=== PATIENT | female | born 1945 | race Caucasian/White ===

== ENCOUNTER 2023-01-07 14:37 | Emergency (ER) | payer MEDICARE, SELFPAY ==
[2023-01-07 14:39] VITALS: BP 160/108; PULSE 62; RESP 18; TEMP 36.2; O2SAT 100; BMI 19.4
--- NOTE | 2023-01-07 15:12 | EX.ED.DYSGE1 ---
HPI History of Present Illness Chief Complaint: Hypertension Informant: patient and spouse/S.O. Onset/Context/Timing Onset: Today Current Severity: Mild Maximum Severity: Mild Narrative Narrative: 77-year-old old female history of hypertension for which she is treated with metoprolol and verapamil each once daily. Today had trouble with her vision. Was seen by her machine operator cane cutter Dr. Perez. Sent her in due to her elevated blood pressure. She denies any headache. She denies any chest pain. States she has white coat syndrome whenever her blood pressures taken in the physician's office. Prior similar symptoms: Yes Recent Illness/Hospitalization: No PFSH PFSH Allergy/AdvReac Type Severity Reaction Status Date / Time codeine Allergy Other Verified 01/07/23 14:39 Social History Smoking Status: Never smoker ROS ROS ED ROS Narrative Denies recent illness. Review of Systems ROS Unobtainable: Denies due to encephalopathy Constitutional Constitutional ED: Denies chills or fever(s) Eyes Eyes: Reports blurry vision ENT ENT ED: Denies ear pain Cardiovascular Cardiovascular: Denies chest pain Respiratory/Chest Respiratory/Chest: Denies cough Gastrointestinal Gastrointestinal: Denies abdominal pain Genitourinary Genitourinary ED: Denies dysuria Musculoskeletal Musculoskeletal: Denies arthralgias Integumentary Denies abscess Neurologic Neurologic: Denies headache(s) Psychiatric Psychiatric: Denies anxiety Endocrine Endocrinology: Denies cold intolerance Hematologic/Lymphatic Hematologic/Lymphatic: Reports none Allergic/Immunologic Allergic/Immunologic ED: Denies mouth swelling, tongue swelling or urticaria EXAM Physical Exam Narrative Exam Narrative: Well-appearing 77-year-old female. Vital signs are stable and afebrile. Initial blood pressure is 160/108. She is in no distress. H EENT exam unremarkable. Pupils round react light extra motions are intact. No facial droop. Normal speech. Neck nontender no lymphadenopathy. Lungs clear. Heart regular rhythm rate about 60 no murmur. Abdomen soft nontender. Moving all 4 extremities. Normal circulation analyst strength. Normal dorsi plantarflexion. No edema. Neurologically she is awake and alert with no focal motor deficits. NIH is 0. Const Vital Signs: 01/07/23 14:39 01/07/23 14:46 01/07/23 15:13 Temperature 97.1 F L Temperature Source Temporal Pulse Rate 62 Respiratory Rate 18 Respiratory Pattern Normal Blood Pressure 160/108 H 186/88 H Blood Pressure Mean 125 120 Pulse Ox 100 Oxygen Delivery Method Room Air 01/07/23 16:15 Temperature Temperature Source Pulse Rate Respiratory Rate Respiratory Pattern Blood Pressure 173/85 H Blood Pressure Mean 114 Pulse Ox Oxygen Delivery Method Positive well nourished and well developed; Negative for obese, cachectic, contractures or unkempt General Appearance ED: well developed and NAD; Negative for unkempt, cachectic, contractures, cyanotic, diaphoretic or pallor Nutritional Appearance: Negative for cachectic or obese HEENT Reports moist mucous membranes Negative for trauma or tenderness Eyes PERRL and EOMs intact bilaterally General Eye ED: Negative for pale conjunctiva or scleral icterus Neck no lymphadenopathy, supple and no JVD General: Negative for tenderness Lymph Lymphatic: Negative for other Chest Wall inspection of chest normal and palpation of chest normal Chest: Negative for other Resp normal respiratory effort and clear to auscultation bilaterally Effort and Inspection: Negative for retractions Auscultation: Negative for rales, rhonchi or wheezes Cardio regular rate, regular rhythm, S1 normal heart sound, S2 normal heart sound and no murmurs Rate: Negative for bradycardia or tachycardic GI normal to inspection, nondistended, normoactive bowel sounds, non-tender, non-distended and no masses Inspection: Negative for abdominal distention Auscultation: normoactive bowel sounds Palpation: soft; Negative for tender or guarding Bladder / Kidney Exam: No other Back/Spine no CVA tenderness General Back: Negative for CVA tenderness Cervical Spine: Negative for cervical spine tenderness Thoracic Spine / Upper Back: Negative for thoracic spinal tenderness Lumbar Spine / Lower Back: Negative for lumbar spinal tenderness Extremity normal to inspection General Extremety ED: Negative for edema or tenderness General Extremity: Negative for edema Neuro oriented x3 and CN's II-XII intact bilaterally Sensorium / Orientation: alert; Negative for orientation impaired, lethargic or stuporous Motor Exam: strength 5/5 throughout Psych mental status grossly normal Appearance: Negative for unkempt Attitude: No agitated Mood & Affect: Negative for depressed, anxious or tearful Skin no rashes or lesions noted, no wounds and skin turgor normal General Skin Exam: elasticity normal; Negative for jaundice or pallor Lesions: No lesion noted Rashes: No rashes noted Trauma: Negative for abrasion Wounds: Negative for wounds noted MDM MDM MDM Narrative Medical decision making narrative: 77-year-old female acute on chronic hypertension already on metoprolol and verapamil. Otherwise normal exam. Repeat blood pressure is 186/88. She will be treated with a single dose of metoprolol. Reassess. Repeat exam patient is doing well at 4:35 PM. She was treated with a metoprolol 12.5 mg. Her blood pressure stable. She will be discharged home. Instructed to log her blood pressures twice daily. Follow-up with primary care physician to decide if they need to adjust or change any of her blood pressure medications. Discharge Plan Triage Chief Complaint: Hypertension Other Complaint: Eye Problem ED Provider: Saran Carter Dx/Rx/DC Orders Clinical Impression: Hypertension Instructions: ED High Blood Pressure Hypertension Primary Care Provider: Lavon Torre Referrals: Margaret Cristobal MD [Med Staff - Alteration Workroom Supervisor] - Lavon Torre MD [Primary Care Provider] - 5-7 Days Activity Restrictions/Additional Instructions: Continue to take your blood pressure medications as prescribed. Log your blood pressures twice daily in the morning after breakfast and in the evening after dinner when you are relaxed and calm. Follow-up with your doctor showing the readings and they can decide whether they need to alter your blood pressure medication dosages or the meds themselves. You should be able to have your blood pressure controlled with 1 or 2 medications. They may need to just change the dosages. If need be you can take an extra metoprolol at home if your blood pressures consistently running higher than 180/100. Disposition Disposition: Home, Self Care
[2023-01-07 15:13] VITALS: BP 186/88
[2023-01-07] MEDS: Metoprolol(XL)Succ 25 MG Tablet 12.5 MG PO (15:27)
[2023-01-07 16:15] VITALS: BP 173/85
== END 2023-01-07 17:06 | disposition home or self-care (01) ==
PROVIDERS: Emergency Provider Emergency Medicine; PCP Family Medicine; Visit Provider Emergency Medicine
DX: I10 Essential (primary) hypertension (principal); Z79.899 Other long term (current) drug therapy
CPT/HCPCS: 99283

== ENCOUNTER 2024-11-22 18:54 | Observation (INO) | payer MEDICARE, SELFPAY ==
[2024-11-22] VITALS (7 sets, daily range): BP systolic 185–214; BP diastolic 89–133; PULSE 76–99; RESP 16–24; TEMP 36.6–36.8; O2SAT 97–100; BMI 19.1
--- NOTE | 2024-11-22 19:03 | CT_ITS ---
PROCEDURE: STROKE CTA HEAD AND NECK W/CON 11/22/2024 REASON FOR EXAM: NEURO DEFICIT, ACUTE, STROKE SUSPECTED TECHNIQUE: Procedure Code: CTCTA.ST.HN Modality: CT Procedure: STROKE CTA HEAD AND NECK W/CON Multiplanar Sagittal and Coronal images were obtained. CONTRAST: 100 cc of Isovue 370 intravenous contrast. One or more dose reduction techniques were used (e.g., Automated exposure control, adjustment of the mA and/or kV according to patient size, use of iterative reconstruction technique). COMPARISON: CT head 11/22/2024 FINDINGS: Aortic Arch: Normal size and branching pattern. No significant atherosclerotic plaque. Brachiocephalic and Subclavians: Unremarkable RIGHT Carotid: Right CCA: Unremarkable. Right ICA: Unremarkable. Maximum stenosis (NASCET): n/a Right ECA: Unremarkable. LEFT Carotid: Left CCA: Unremarkable. Left ICA: Unremarkable. Maximum stenosis (NASCET): n/a Left ECA: Unremarkable. Vertebrals: Codominant. Arise from the subclavians. Both vertebrals form the basilar. RIGHT Vertebral: Unremarkable. LEFT Vertebral: Unremarkable. Anatomy: [place] anatomy is normal. Aneurysm or avm: No intracranial aneurysms or large vascular malformations are identified. Anterior cerebral arteries: Unremarkable: Middle cerebral arteries: Unremarkable. Basilar artery: Unremarkable. Posterior cerebral arteries: Unremarkable. Other major branches of the posterior circulation: Unremarkable. Major venous structures: Unremarkable. Other findings: Neck: No lymphadenopathy. Lungs: Lung apices are clear. Bones: Bones are unremarkable. CT/STROKE CTA Head AND Neck W/Con IMPRESSION: Unremarkable CT angiogram of the head and neck with no evidence of occlusion or hemodynamically significant stenosis. Reading Location[facility]
--- NOTE | 2024-11-22 19:03 | CT_ITS ---
PROCEDURE: STROKE BRAIN/HEAD WITHOUT CONT 11/22/2024 REASON FOR EXAM: NEURO DEFICIT, ACUTE, STROKE SUSPECTED TECHNIQUE: Procedure Code: CTBR.ST Modality: CT Procedure: STROKE BRAIN/HEAD WITHOUT CONT Coronal and Sagittal reconstruction series were provided. One or more dose reduction techniques were used (e.g., Automated exposure control, adjustment of the mA and/or kV according to patient size, use of iterative reconstruction technique. COMPARISON: None available. FINDINGS: There is no extra-axial or intra-axial intracranial hemorrhage. No mass effect or midline shift is seen. Generalized intracranial volume loss and findings compatible with chronic microvascular white matter ischemia. There is normal traore-white matter differentiation. The posterior fossa is grossly unremarkable. The skull is unremarkable. Visualized paranasal sinuses are clear. The mastoid air cells show normal translucency. CT/STROKE Brain/Head without Cont IMPRESSION: 1. No intracranial hemorrhage. No mass effect or midline shift. 2. Chronic involutional and ischemic gliotic white matter changes. CT is insensitive for early evaluation of acute stroke. If there is clinical co ncern for acute ischemia, an MRI may be considered. Findings were verbally communicated with Dr. Sameer Vegas on 11/23/2019 at 4:30 p.m. EST. Reading [facility]
--- NOTE | 2024-11-22 19:03 | EKG12_ITS ---
Test Reason : STROKE ALERT Blood Pressure : */* mmHG Vent. Rate : 93 BPM Atrial Rate : 93 BPM P-R Int : 172 ms QRS Dur : 88 ms QT Int : 366 ms P-R-T Axes : 55 52 51 degrees QTcB Int : 455 ms Normal sinus rhythm Normal ECG Confirmed by TORI MACK, ALICE ([id number]), editor in chief newspaper DENG KINCAID ([id number]) on 11/25/2024 7:39:15 AM Referred By: KAREN Confirmed By: ALICE VALLE MD
--- NOTE | 2024-11-22 19:24 | PCA ---
no old ekg
--- NOTE | 2024-11-22 19:27 | EX.ED.DYSGE1 ---
HPI History of Present Illness Chief Complaint: Neuro S/Sx Narrative Narrative: Patient is a 79-year-old female with past medical history of hypertension who presented to the emergency department the chief complaint of double vision. According to the patient she states that around 9:30 AM this morning she had sudden onset double vision she states that she was up town when she noted she started seeing double and triple of cars. She states that she was able to make it back home called her family member and they took her to the eye doctor be evaluated. She states that she was then told that there is a possibility that she had stroke therefore she came here for further evaluation and management. [facility] Home Medications Medication Instructions Recorded Last Taken Type metoprolol succinate 100 mg 100 mg PO QDAY 06/07/24 Unknown History tablet,extended release 24 hr pseudoephedrine HCl 120 mg 120 mg PO Q12H 06/07/24 Unknown History tablet,extended release (Sudafed 12 Hour) verapamil 240 mg tablet,extended 240 mg PO QDAY 06/07/24 Unknown History release Allergy/AdvReac Type Severity Reaction Status Date / Time codeine Allergy Other Verified 06/07/24 09:13 Social History Smoking Status: Never smoker ROS ROS ED ROS Narrative Constitutional: Denies any fevers, chills, headaches Eyes: Complains of double vision but states that this is better now Cardiovascular: Denies chest pain Respiratory: Denies shortness of breath Abdomen: Denies abdominal pain nausea vomit diarrhea : Denies urinary symptoms Neurological: Denies any numbness, weakness, tingling Musculoskeletal: Denies back pain Skin: Denies any rashes or lesions EXAM Physical Exam Narrative Exam Narrative: General: Patient lying in bed rest comfortably did not appear to any acute distress Head: Atraumatic, normocephalic Eyes: PERRL bilaterally, EOMI bilateral, no conjunctival injection noted Neck: Soft, supple, trachea midline Cardiovascular: Regular rate and rhythm Respiratory: Clear to auscultation bilaterally Abdomen: Soft, nondistended, no tenderness to palpation Extremities: +5/5 strength noted in the bilateral upper and lower extremities, radial pulses +2/4 in the bilateral extremities Neurological: Patient follow commands knew that she was at [facility] the year is 2024. NIH of 0 GCS 15 Skin: Warm, dry, intact no rashes or lesions noted Const Vital Signs: 11/22/24 18:55 11/22/24 19:03 11/22/24 19:03 Temperature 98.3 F Temperature Source Oral Pulse Rate 93 92 Respiratory Rate 16 17 Blood Pressure 196/112 H 189/92 H Blood Pressure Mean 140 124 Pulse Ox 100 100 Oxygen Delivery Method Room Air Room Air Room Air 11/22/24 19:33 11/22/24 20:33 11/22/24 21:00 Temperature Temperature Source Pulse Rate 99 83 99 Respiratory Rate 21 H 17 24 H Blood Pressure 190/89 H 206/103 H 191/108 H Blood Pressure Mean 122 137 135 Pulse Ox 98 99 97 Oxygen Delivery Method Room Air Room Air Room Air MDM MDM MDM Narrative Medical decision making narrative: Patient is a 79-year-old female who presents to the emergency department with a chief complaint of double vision as noted above. On the differential diagnose includes but not limited to aneurysm, ischemic stroke, hemorrhagic stroke, electrolyte abnormality. Once the workup is obtained reviewed she will be reevaluated. On-call automotive title clerk Dr. 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 Patient is not a tenecteplase candidate given that her symptoms are started at 9:30 AM and it is 7:32 PM this evening she is outside of the window as been greater than 4-1/2 hours. She was a stroke alert for LVO Patient's CBC was reviewed and showed no evidence leukocytosis white blood count was 6.5, he was 12.8, plate count was 283. Patient INR normal 1, PT of 12.9. Patient sodium normal 143, potassium 3.6, creatinine is normal 0.93. Patient troponin normal at 11. Patient CT head brain without contrast showed no acute intracranial hemorrhage chronic involutional and ischemic gliotic white matter changes noted. Patient CTA head and neck reviewed and showed no evidence of large vessel occlusion. Patient's EKG reviewed and showed sinus rhythm rate of 93 bpm TX interval 172. Patient was given 325 mg aspirin. Discussed case with teleneurologist Dr. Jolly who is recommending admission for further stroke workup. Will discuss case with hospitalist for admission. Patient case discussed with hospitalist Dr. Sidhu who accept the patient for admission. Patient notified is agreeable to spinal cord concerns answered. Lab Data Labs: Laboratory Results - last 24 hr 11/22/24 11/22/24 19:16 19:20 WBC 6.5 RBC 4.07 L Hgb 12.8 Hct 39.1 MCV 96.1 MCH 31.4 MCHC 32.7 RDW Std Deviation 46.1 H RDW Coeff of Cecile 13.1 Plt Count 283 MPV 9.4 Immature Gran % (Auto) 0.600 Neut % (Auto) 57.0 Lymph % (Auto) 29.4 [place] % (Auto) 10.4 H Eos % (Auto) 1.7 Baso % (Auto) 0.9 Absolute Neuts (auto) 3.7 Absolute Lymphs (auto) 1.92 Nucleated RBC % 0 PT 12.9 INR 1.0 APTT 23.8 L Sodium 143 Potassium 3.6 Chloride 109 H Carbon Dioxide 20.0 L Anion Gap 14 BUN 30 H Creatinine 0.93 Estim Creat Clear Calc 39.73 L Est GFR (MDRD) Non-Af 63 BUN/Creatinine Ratio 32.7 H Glucose 86 Calcium 9.0 Troponin T High Sens 11 POC Glucose 73 L Radiography Diagnostic Testing: Clinical Impression(s) from Imaging Studies Brain CT 11/22/24 19:03 IMPRESSION: 1. No intracranial hemorrhage. No mass effect or midline shift. 2. Chronic involutional and ischemic gliotic white matter changes. CT is insensitive for early evaluation of acute stroke. If there is clinical concern for acute ischemia, an MRI may be considered. Findings were verbally communicated with Dr. Sameer Vegas on 11/23/2019 at 4:30 p.m. EST. Reading Location: [facility] Head/Neck CTA 11/22/24 19:03 IMPRESSION: Unremarkable CT angiogram of the head and neck with no evidence of occlusion or hemodynamically significant stenosis. Reading Location: [facility] Discharge Plan Dx/Rx/DC Orders Clinical Impression: Double vision, Hypertension Disposition Disposition: Acute Care [facility]
--- NOTE | 2024-11-22 19:30 | CM.ED ---
Social Work Date of referral: 11/22/24 Reason for referral: Stroke Alert Patient was already being transported to imaging when 7th grade social studies teacher arrived. Electrical Prospecting Observer remained behind with patient's brother, Michael. Patient's is out of town. Electrical Prospecting Observer provided support and remained until patient returned. Patient smiling and talking. No other needs identified at this time. Diana Kelly, HOME RESTORATION SERVICE CLEANER, CAR BARN LABORER
[2024-11-22 19:31] LABS: Hematocrit 39.1 % (37-47); Hemoglobin 12.8 g/dL (12.0-15.0); Immature Granulocytes Count 0.040 X10^3/uL (0.0-0.0); Mean Corp Hgb Conc 32.7 g/dL (32-36); Mean Corpuscular Volume 96.1 fL (81-99); Mean Platelet Vol. 9.4 fl (6.2-12.0); NRBC Flagged by Analyzer 0 % (0-5); Platelet Count 283 K/mm3 (150-450); RBC Distribution Width CV 13.1 % (11.6-14.6); RBC Distribution Width SD 46.1 fl (35.1-43.9); Red Blood Count 4.07 M/mm3 (4.2-5.4); White Blood Count 6.5 K/mm3 (4.4-11.0)
[2024-11-22 19:40] LABS: Prothrombin Time (Protime)PT. 12.9 SECONDS (11.7-14.9)
[2024-11-22 19:41] LABS: Partial Thromboplast Time 23.8 Seconds (24.1-36.2)
[2024-11-22 19:52] LABS: Anion Gap 14 (5-15); BUN 30 mg/dL (4-19); BUN/Creat Ratio 32.7 RATIO (10-20); Calcium,Total 9.0 mg/dL (7.6-11.0); Carbon Dioxide 20.0 mmol/L (21.0-32.0); Chloride 109 mmol/L (98-108); Estimated Creatinine Clearance 39.73 ml/min (50-250); Glucose 86 mg/dL (70-99); Potassium 3.6 mmol/L (3.3-5.1); Troponin T High Sensitivity 11 ng/L (<=14)
--- NOTE | 2024-11-22 20:54 | HP.PCM.HOS_ITS ---
[facility] - General General Date of Admission: 11/22/24 Date of Service: 11/22/24 Chief Complaint: Double Vision. HPI Narrative CARMINE PATEL, is a 79 F with a past medical history of essential hypertension; on metoprolol plus june/apamil ER, history of sinusitis; on pseudoephedrine BID and OA who presents to [facility] ER complaining of double vision. Ms. Patel reports her symptoms began approximately 9:30 AM with the abrupt-onset of double vision in her Left eye while she driving when she suddenly began seeing double and triple cars. She then immediately went home and made an emergency appointment with her eye doctor who thought she may be having a CVA and she was then instructed to come in to the ER for further evaluation and treatment. She states her double vision has since virtually resolved with minor residual visual disturbance in the Left eye. She admits to a similar episode of double vision prompting her to visit the ER here January 07, 2023 that was treated conservatively with additional metoprolol with patient then discharged to follow up with her PCP. She denies associated fever, chills, headache, paresthesias, facial droop, slurred speech, difficulty swallowing, focal neurologic weakness, stimulant use or other dietary supplements but she does admits to chronically uncontrolled hypertension in spite of taking her metoprolol and verapamil as prescribed. In the ER she was noted to have a CT of the brain without contrast that revealed no acute ICH, mass effect or midline shift with chronic involutional and ischemic gliotic white matter changes with MRI recommended followed by CT scan of the head and neck with IV contrast that was read unremarkable CT angiogram of the head and neck with no evidence of occlusion or hemodynamically significant stenosis complicated by elevated blood pressure of 196/112 mmHg consistent with suspected Hypertensive Emergency compounded by laboratory evidence of Hypoglycemia with low-normal range blood glucose of 73 mg/dL with otherwise unremarkable laboratory studies and vital signs. She was then admitted to the PCU under observation status for a stay that is expected to be less than 2 midnights. [facility] Home Medications Medication Instructions Recorded Last Taken Type metoprolol succinate 100 mg 100 mg PO QDAY 06/07/24 Un known History tablet,extended release 24 hr pseudoephedrine HCl 120 mg 120 mg PO Q12H 06/07/24 Unk nown History tablet,extended release (Sudafed 12 Hour) verapamil 240 mg tablet,extended 240 mg PO QDAY Unknown History release Allergy/AdvReac Type Severity Reaction Status Date / Time codeine Allergy Other Verified 11/22/24 21:33 Social History Smoking Status: Never smoker ROS ROS Narrative Review of Systems: Constitutional: Patient denies fever or chills. Eyes: Patient admits to double vision that has virtually resolved but she denies discharge from eyes. ENT: Patient admits to chronic sinus congestion but she denies sore throat or ear pain. Resp: Patient denies SOB or cough. CV: Patient denies chest pain, palpitations, heart racing or lower extremity edema. GI: Patient denies abdominal pain, nausea, vomiting, diarrhea or constipation. : Patient denies dysuria or hematuria. MSK: Patient denies arthralgias or myalgias. Skin: Patient denies rash, abscess, wounds or jaundice. Psych: Patient denies symptoms of uncontrolled depression or anxiety. Neuro: Patient admits to double vision in the Left eye that has since virtually resolved as per HPI. She denies headache or other focal neurologic deficits. Allergy: Patient denies lip swelling, tongue swelling or urticaria. Hematology: Patient denies easy bleeding or easy bruisability. Endocrinology: Patient denies polyuria, polydipsia, polyphagia or heat/cold intolerance. 14 point ROS otherwise negative except for positives noted above in HPI. Vital Signs Vital Signs Vital Signs: 11/22/24 18:55 11/22/24 19:03 11/22/24 19:03 Temperature 98.3 F Temperature Source Oral Pulse Rate 93 92 Respiratory Rate 16 17 Blood Pressure 196/112 H 189/92 H Blood Pressure Mean 140 124 Pulse Ox 100 100 Oxygen Delivery Method Room Air Room Air Room Air 11/22/24 19:33 Temperature Temperature Source Pulse Rate 99 Respiratory Rate 21 H Blood Pressure 190/89 H Blood Pressure Mean 122 Pulse Ox 98 Oxygen Delivery Method Room Air Weight Weight: 111 lb 4.8 oz Body Mass Index (BMI) 19.1 Physical Exam Const alert, oriented x3, no apparent distress, average body habitus and healthy appearing General Appearance: cooperative HEENT normocephalic, head/scalp atraumatic, hearing grossly normal bilaterally and moist oral mucous membranes Eyes PERRL, EOMs intact bilaterally and conjunctivae normal Neck no lymphadenopathy, supple and no JVD Resp normal respiratory effort, no retractions, no use of accessory muscles and clear to auscultation bilaterally Cardio regular rate and regular rhythm GI normal to inspection, nondistended, normoactive bowel sounds, soft to palpation, non-tender and non-distended Extremity normal to inspection, full ROM and no clubbing, cyanosis or edema Skin Skin Narrative: Patient has no evidence of rash. Neuro oriented x3, CN's II-XII intact bilaterally, moves all extremities and no focal motor deficits Neuro Narrative: NIH 0. Patient denies diplopia but she admits to minor residual visual disturbance in the Left eye. Sensorium / Orientation: awake, alert, oriented to person, oriented to place and oriented to time Speech: speech normal Psych affect normal Results Medical Records Data Attestation: I reviewed the patient's medical records Lab / Micro Data Attestation: I reviewed the patient's lab results. 11/22/24 19:20 11/22/24 19:20 Labs: Laboratory Results - last 24 hr 11/22/24 19:16: POC Glucose 73 L 11/22/24 19:20: WBC 6.5, RBC 4.07 L, Hgb 12.8, Hct 39.1, MCV 96.1, MCH 31.4, MCHC 32.7, RDW Std Deviation 46.1 H, RDW Coeff of Cecile 13.1, Plt Count 283, MPV 9.4, Immature Gran % (Auto) 0.600, Neut % (Auto) 57.0, Lymph % (Auto) 29.4, Anderson % (Auto) 10.4 H, Eos % (Auto) 1.7, Baso % (Auto) 0.9, Absolute Neuts (auto) 3.7, Absolute Lymphs (auto) 1.92, Nucleated RBC % 0, PT 12.9, INR 1.0, APTT 23.8 L, Sodium 143, Potassium 3.6, Chloride 109 H, Carbon Dioxide 20.0 L, Anion Gap 14, BUN 30 H, Creatinine 0.93, Estim Creat Clear Calc 39.73 L, Est GFR (MDRD) Non-Af 63, BUN/Creatinine Ratio 32.7 H, Glucose 86, Calcium 9.0, Troponin T High Sens 11 Imaging Radiology Impression Brain CT 11/22/24 19:03 IMPRESSION: 1. No intracranial hemorrhage. No mass effect or midline shift. 2. Chronic involutional and ischemic gliotic white matter changes. CT is insensitive for early evaluation of acute stroke. If there is clinical concern for acute ischemia, an MRI may be considered. Findings were verbally communicated with Dr. Sameer Vegas on 11/23/2019 at 4:30 p.m. EST. Reading Location: [facility] Head/Neck CTA 11/22/24 19:03 IMPRESSION: Unremarkable CT angiogram of the head and neck with no evidence of occlusion or hemodynamically significant stenosis. Reading Location: [facility] Assessment & Plan Assessment/Plan (1) TIA (transient ischemic attack): (2) Double vision: (3) Hypertensive emergency: (4) Hypoglycemia: (5) Essential hypertension: PLAN: Plan 1. Suspected TIA vs CVA; with abrupt-onset of double vision that has since resolved - Admit to PCU under observation status. Continue ECASA plus add statin. Check MRI of the brain to evaluate for CVA. Check echocardiogram to evaluate LVEF. Check TSH, B12, Folate, HgbA1c, Lipid Profile, LANDEN and UDS. Finally, we will consult [facility] to see this patient on-rounds in the AM for further recommendations with help appreciated in advance. 2. Hypertensive Emergency; with elevated blood pressure of 196/112 mmHg present on admission complicating #1 - Allow for 'permissive hypertension' until CVA definitively ruled out on MRI. 3. Hypoglycemia; Low-normal range blood glucose of 73 mg/dL compounding #1 & #2 - Check HgbA1c and give KVO IVF with D5 NS to prevent worsening hypoglycemia. 4. Essential hypertension; on metoprolol plus verapamil ER poorly controlled chronically precipitating #1 & #2 - Hold scheduled antihypertensives until CVA definitively ruled out on MRI as outlined in #2. Consider adding diuretic when patient approved to start treatment. 5. History of sinusitis - Noted. No mention of active sinus disease at this time on heat CT. Give oxymetazoline NS prn. Patient denies taking pseudoephedrine in years. 6. OA - Give acetaminophen prn for pain or fever. 7. DVT prophylaxis - Enoxaparin 30 mg sq daily plus SCD's. Total time: Approximately (but not less than) 70 minutes. Charges/Coding Visit Charges OBSV E&M: 97769 Observ/hosp same date L2
[2024-11-22 21:41] LABS: Troponin T High Sens 2 HR 12 ng/L (<=14)
[2024-11-22] MEDS: Dextrose 5%/0.9% NaCl 1,000 ML 30 ML IV (22:52)
[2024-11-22 23:06] LABS: Vitamin B12 906 pg/mL (180-914)
[2024-11-22 23:49] LABS: Troponin T High Sens 4 HR 14 ng/L (<=14)
[2024-11-22 23:50] LABS: Alcohol, Blood (Medical)-Serum < 10.1 mg/dL (<=10.0)
[2024-11-23 01:30] LABS: FOLATES,SERUM (FOLIC ACID) 37.40 ng/mL (4.60-34.80)
[2024-11-23 01:50] VITALS: BP 142/103; PULSE 88; RESP 16; TEMP 36.6; O2SAT 99
[2024-11-23 02:30] VITALS: O2SAT 95
[2024-11-23 05:29] LABS: Cholesterol 220 mg/dL (<=200); Low Density Lipoprotein Calc. 127 mg/dL; Triglycerides 67 mg/dL; Very Low Density Lipoprotein 13 mg/dL (5-40); cholesterol:hdl ratio screen 2.77
[2024-11-23 06:00] VITALS: BP 170/97; PULSE 91; RESP 16; TEMP 36.4; O2SAT 100
[2024-11-23 07:49] VITALS: O2SAT 99
[2024-11-23 10:47] VITALS: BP 179/102; PULSE 97; RESP 16; TEMP 36.6; O2SAT 99
--- NOTE | 2024-11-23 11:37 | PCM.DC ---
Discharge Instructions DC O2, CPAP, BIPAP needs Home O2 Discharge instructions: No Dressing / Incision Discharge Activity: Return to Normal Activity Dressing / Incision Call your doctor if you observe: Fever of 101 or Higher, Shortness of breath, Dizziness, Fainting spells, Swelling in the ankles, Chest pain and Increased palpitations (irregular heartbeat) Follow Up Care Test Results: Test results from this visit will be discussed in further detail at your follow-up appointment, if applicable. Discharge Plan Admission Admit Date/Time: 11/22/24 21:27 Attending Provider: Chidi Zhao Primary Care Provider: Lavon Torre Consulting Providers: Jone Kelly; Gissell Navarrete; Barbara Chaidez; Alanna Navarro; Brandy Larsen; Harsh Mckinley; Yvonne Trimble; Anthony Mcintosh; Hardeep Lynch; Pardeep Jolly; Reyna Eli; Dana Winters; Ramesh Farias; Mariela Mendoza; Too Nguyen; Delfina Fountain; Rui Manriquez; Booker Yañez; Zaire Pereyra; Charlotte Batista; Ian Perez; Ryder Black Instructions Additional Instructions / Restrictions: Follow-up with your primary care doctor to obtain an echo with a bubble study as an outpatient to complete evaluation for your stroke rule out. MRI was unremarkable for stroke however you are still having some double vision and therefore I do also recommend outpatient follow-up with ophthalmology Discharge Orders/Prescriptions Prescriptions: New atorvastatin 40 mg Tablet 40 mg PO QHS 30 Days Qty: 30 0RF aspirin 81 mg Tablet,Chewable 81 mg PO DAILYCM 30 Days Qty: 30 0RF Continued verapamil 240 mg tablet extended release 240 mg PO QDAY metoprolol succinate 100 mg tablet extended release 24 hr 100 mg PO QDAY pseudoephedrine HCl [Sudafed 12 Hour] 120 mg tablet extended release 120 mg PO Q12H Referrals / Follow Up: Lavon Torre MD [Primary Care Provider, [facility]] - Within 1 Week Disposition Disposition (needs filled in before D/C Order can be placed): Home, Self Care
--- NOTE | 2024-11-23 14:00 | DS.PCM_ITS ---
Providers Date of Admission: 11/22/24 Primary Care Physician: Dr. Lavon Torre MD Consultations 11/22/24 22:17 Consult: Tele-Neurology Routine Consulting Provider: [facility] Reason for Consult: Acute Ischemic Stroke/TIA EMERGENT Consult: No MD Notified: Yes Date Notified: 11/22/24 Time Notified: 22:37 Method of Notification: Answering Service Method of Consult:: Telemedicine Nursing Unit Staff Notify [facility] of Tele-Neurology Consult: Yes Reason For Visit: TIA;WITH TRANSIENT DIPLOPIA, HTN EMERGENCY ADR TO Diagnosis Discharge Diagnosis (1) TIA (transient ischemic attack): Status: Acute Code(s): G45.9 - Transient cerebral ischemic attack, unspecified (2) Double vision: Status: Acute Code(s): H53.2 - Diplopia (3) Hypertensive emergency: Status: Acute Code(s): I16.1 - Hypertensive emergency (4) Hypoglycemia: Status: Acute Code(s): E16.2 - Hypoglycemia, unspecified (5) Essential hypertension: Status: Acute Code(s): I10 - Essential (primary) hypertension Medications at Discharge Home Medications metoprolol succinate 100 mg tablet,extended release 24 hr 100 mg PO QDAY 06/07/24 pseudoephedrine HCl 120 mg tablet,extended release (Sudafed 12 Hour) 120 mg PO Q12H 06/07/24 verapamil 240 mg tablet,extended release 240 mg PO QDAY 06/07/24 aspirin 81 mg chewable tablet 81 mg PO DAILYCM 30 days #30 tabs 11/23/24 atorvastatin 40 mg tablet 40 mg PO QHS 30 days #30 tabs 11/23/24 Hospital Course Operations None Procedures None Summary of Care Provided Minutes Spent on Discharge: 35 Hospital Course: Per HPI: CARMINE PATEL, is a 79 F with a past medical history of essential hypertension; on metoprolol plus june/apamil ER, history of sinusitis; on pseudoephedrine BID and OA who presents to [facility] ER complaining of double vision. Ms. Patel reports her symptoms began approximately 9:30 AM with the abrupt-onset of double vision in her Left eye while she driving when she suddenly began seeing double and triple cars. She then immediately went home and made an emergency appointment with her eye doctor who thought she may be having a CVA and she was then instructed to come in to the ER for further evaluation and treatment. She states her double vision has since virtually resolved with minor residual visual disturbance in the Left eye. She admits to a similar episode of double vision prompting her to visit the ER here January 07, 2023 that was treated conservatively with additional metoprolol with patient then discharged to follow up with her PCP. She denies associated fever, chills, headache, paresthesias, facial droop, slurred speech, difficulty swallowing, focal neurologic weakness, stimulant use or other dietary supplements but she does admits to chronically uncontrolled hypertension in spite of taking her metoprolol and verapamil as prescribed. In the ER she was noted to have a CT of the brain without contrast that revealed no acute ICH, mass effect or midline shift with chronic involutional and ischemic gliotic white matter changes with MRI recommended followed by CT scan of the head and neck with IV contrast that was read unremarkable CT angiogram of the head and neck with no evidence of occlusion or hemodynamically significant stenosis complicated by elevated blood pressure of 196/112 mmHg consistent with suspected Hypertensive Emergency compounded by laboratory evidence of Hypoglycemia with low-normal range blood glucose of 73 mg/dL with otherwise unremarkable laboratory studies and vital signs. She was then admitted to the PCU under observation status for a stay that is expected to be less than 2 midnights. Hospital Course: 1. Rule out CVA/hypertensive urgency–79-year-old female presented to the hospital with double vision. This has since resolved. 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 She states that she is feeling much better today, she denies any headaches or blurry/double vision today. She is on metoprolol and verapamil however her blood pressures are still sitting in the 170s prior to discharge. I do recommend she follow-up with her PCP for medication adjustments, her blood pressure medications were held on admission for permissive hypertension. MRI showed chronic ischemic changes but no acute CVA. She was started on aspirin and Lipitor which we will continue on discharge. I discussed with her the role of an echocardiogram however this would have to be done tomorrow and she would prefer to go home today. She expressed understanding of the risks and benefits of going home and would like to go home today. I do recommend that she obtain an echocardiogram as an outpatient, and follow-up with her PCP in 3 to 5 days to monitor her blood pressure and make any medication adjustments. Physical Exam Narrative General: Alert, Oriented x3, Cooperative, No apparent distress HEENT: Atraumatic, PERRLA, EOMI, Normocephalic Oral: Moist Mucosa Neck: Supple, No JVD Lungs: Diminished, Normal air movement, No rhonchi, No wheeze, No rales Cardiovascular: Regular rate, Regular Rhythm, Normal S1, Normal S2, No murmurs Abdomen: Soft, Non Tender, Non-Distended, No Hepato-splenomegaly Extremities: No edema, Capillary Refill Less than 3 Seconds Skin: No rashes, No breakdown Musculoskeletal: No Tenderness to Palpation of Joints or Extremities Neurological: No focal neurological deficits, moves all extremities, sensation intact Psych/Mental Status: Normal Affect, Appropriate Weight / BMI Weight Weight: 115 lb 4.828 oz Body Mass Index (BMI) 19.1 ABG / Lab / Microbiology Data 11/22/24 19:20 11/22/24 19:20 Laboratory: Laboratory Results - last 24 hr 11/22/24 19:16: POC Glucose 73 L 11/22/24 19:20: WBC 6.5, RBC 4.07 L, Hgb 12.8, Hct 39.1, MCV 96.1, MCH 31.4, MCHC 32.7, RDW Std Deviation 46.1 H, RDW Coeff of Cecile 13.1, Plt Count 283, MPV 9.4, Immature Gran % (Auto) 0.600, Neut % (Auto) 57.0, Lymph % (Auto) 29.4, Bonner % (Auto) 10.4 H, Eos % (Auto) 1.7, Baso % (Auto) 0.9, Absolute Neuts (auto) 3.7, Absolute Lymphs (auto) 1.92, Nucleated RBC % 0, PT 12.9, INR 1.0, APTT 23.8 L, Sodium 143, Potassium 3.6, Chloride 109 H, Carbon Dioxide 20.0 L, Anion Gap 14, BUN 30 H, Creatinine 0.93, Estim Creat Clear Calc 39.73 L, Est GFR (MDRD) Non-Af 63, BUN/Creatinine Ratio 32.7 H, Glucose 86, Hemoglobin A1c 5.8 H, Calcium 9.0, Troponin T High Sens 11 11/22/24 21:05: Troponin T Hi Sens 2 Hr 12, Vitamin B12 906, TSH 1.850 11/22/24 23:13: Troponin T Hi Sens 4Hr 14, Serum Folate 37.40 H, Ethyl Alcohol < 10.1 11/23/24 04:25: Triglycerides 67, Cholesterol 220 H, LDL Cholesterol, Calc 127, VLDL Cholesterol 13, HDL Cholesterol 79, Cholesterol/HDL Ratio 2.77 Radiography Diagnostic Testing: Radiology Impression Brain CT 11/22/24 19:03 IMPRESSION: 1. No intracranial hemorrhage. No mass effect or midline shift. 2. Chronic involutional and ischemic gliotic white matter changes. CT is insensitive for early evaluation of acute stroke. If there is clinical concern for acute ischemia, an MRI may be considered. Findings were verbally communicated with Dr. Sameer Vegas on 11/23/2019 at 4:30 p.m. EST. Reading Location: [facility] Head/Neck CTA 11/22/24 19:03 IMPRESSION: Unremarkable CT angiogram of the head and neck with no evidence of occlusion or hemodynamically significant stenosis. Reading Location: [facility] Brain MRI 11/23/24 21:33 IMPRESSION: No acute brain abnormalities. White matter changes which are nonspecific but most likely due to chronic small- vessel ischemia. No mass-effect or midline shift. Reading Location: [facility] D/C Instructions Call your doctor if you observe: Fever of 101 or Higher, Shortness of breath, Dizziness, Fainting spells, Swelling in the ankles, Chest pain and Increased palpitations (irregular heartbeat) DC O2, CPAP, BIPAP Needs Home O2 Discharge instructions: No Meaningful Use Info Meaningful Use Meaningful Use Diagnoses (Choose all that apply): None applicable Discharge Plan Admission Admit Date/Time: 11/22/24 21:27 Attending Provider: Chidi Zhao Primary Care Provider: Lavon Torre Consulting Providers: Jone Kelly; Gissell Navarrete; Barbara Chaidez; Alanna Navarro; Brandy Larsen; Harsh Mckinley; Yvonne Trimble; Anthony Mcintosh; Hardeep Lynch; Pardeep Jolly; Reyna Eli; Dana Winters; Ramesh Farias; Mariela Mendoza; Too Nguyen; Delfina Fountain; Rui Manriquez; Booker Yañez; Zaire Pererya; Charlotte Batista; Ian Perez; Ryder Black Instructions Additional Instructions / Restrictions: Follow-up with your primary care doctor to obtain an echo with a bubble study as an outpatient to complete evaluation for your stroke rule out. MRI was unremarkable for stroke however you are still having some double vision and therefore I do also recommend outpatient follow-up with ophthalmology Discharge Orders/Prescriptions Prescriptions: New atorvastatin 40 mg Tablet 40 mg PO QHS 30 Days Qty: 30 0RF aspirin 81 mg Tablet,Chewable 81 mg PO DAILYCM 30 Days Qty: 30 0RF Continued verapamil 240 mg tablet extended release 240 mg PO QDAY metoprolol succinate 100 mg tablet extended release 24 hr 100 mg PO QDAY pseudoephedrine HCl [Sudafed 12 Hour] 120 mg tablet extended release 120 mg PO Q12H Referrals / Follow Up: Lavon Torre MD [Primary Care Provider, [facility]] - Within 1 Week Disposition Disposition (needs filled in before D/C Order can be placed): Home, Self Care Charges/Coding Visit Charges Inpatient E&M: 23455 Disch Hosp >30min
--- NOTE | 2024-11-23 16:40 | CON.PCM.NE_ITS ---
Assessment and Plan: Stroke Assessment/Plan CARMINE CLEMENTE, is a 79 year old right=handed female with history of HTN who on 11/22/24 at 930a developed horizontal diplopia (binocular). CT brain negative. CTA head/neck negative. MRI brain DWI negative. LDL 127, HgbA1c 5.8. She is on Asa, lipitor, lovenox Neurological examination shows nonfocal exam, NIHSS-0. ASSESSMENT/PLAN: Suspected DWI negative Acute ischemic stroke 1) Recommend completing stroke work- up with TTE 2) Continue daily anti-platelet medication (Asa) and vascular risk factor modification. On lipitor 3) If stroke work-up negative, can DC home with follow-up in outpatient neurology clinic. Primary team messaged my recs on backline Charlotte Batista MD HPI Consult Data Date of Consult: 11/23/24 HPI Narrative HPI Narrative: CARMINE CLEMENTE, is a 79 year old right=handed female with history of HTN who on 11/22/24 at 930a developed horizontal diplopia (binocular). She saw an eye doctor who sent her to the ER. She presented to [place] [facility]. CT brain negative. CTA head/neck negative. She was admitted. MRI brain DWI negative. LDL 127, HgbA1c 5.8. She is on Asa, lipitor, lovenox. She reports symptoms improved but she still has mild diplopia currently. BP 172/100. Mild SANCHEZ currently 05/22. [facility] Home Medications Medication Instructions Recorded Last Taken Type metoprolol succinate 100 mg 100 mg PO QDAY 06/07/24 Un known History tablet,extended release 24 hr pseudoephedrine HCl 120 mg 120 mg PO Q12H 06/07/24 Unk nown History tablet,extended release (Sudafed 12 Hour) verapamil 240 mg tablet,extended 240 mg PO QDAY Unknown History release aspirin 81 mg chewable tablet 81 mg PO DAILYCM 30 days #30 tabs 11/23/24 Unknown Rx atorvastatin 40 mg tablet 40 mg PO QHS 30 days #30 tab s 11/23/24 Unknown Rx Allergy/AdvReac Type Severity Reaction Status Date / Time codeine Allergy Other Verified 11/22/24 21:33 Social History Smoking Status: Never smoker Vital Signs Vital Signs Vital Signs: 11/22/24 18:55 11/22/24 19:03 11/22/24 19:03 Temperature 98.3 F Temperature Source Oral Pulse Rate 93 92 Pulse Strength Respiratory Rate 16 17 Respiratory Effort Respiratory Depth Respiratory Pattern Blood Pressure 196/112 H 189/92 H Blood Pressure Mean 140 124 Blood Pressure Source Blood Pressure Position Blood Pressure Location Pulse Ox 100 100 Oxygen Delivery Method Room Air Room Air Room Air 11/22/24 19:33 11/22/24 20:33 11/22/24 21:00 Temperature Temperature Source Pulse Rate 99 83 99 Pulse Strength Respiratory Rate 21 H 17 24 H Respiratory Effort Respiratory Depth Respiratory Pattern Blood Pressure 190/89 H 206/103 H 191/108 H Blood Pressure Mean 122 137 135 Blood Pressure Source Blood Pressure Position Blood Pressure Location Pulse Ox 98 99 97 Oxygen Delivery Method Room Air Room Air Room Air 11/22/24 21:42 11/22/24 22:45 11/22/24 23:27 Temperature 98.1 F 97.9 F Temperature Source Oral Pulse Rate 99 76 Pulse Strength Respiratory Rate 20 H 16 Respiratory Effort Normal Respiratory Depth Normal Respiratory Pattern Normal Blood Pressure 214/133 H 185/98 H Blood Pressure Mean 160 127 Blood Pressure Source Monitor Blood Pressure Position Semi-Fowlers Blood Pressure Location Right Arm Pulse Ox 98 100 Oxygen Delivery Method Room Air Room Air 11/23/24 01:50 11/23/24 02:24 11/23/24 02:30 Temperature 97.8 F Temperature Source Oral Pulse Rate 88 Pulse Strength Respiratory Rate 16 Respiratory Effort Normal Respiratory Depth Normal Respiratory Pattern Normal Blood Pressure 142/103 H Blood Pressure Mean 116 Blood Pressure Source Monitor Blood Pressure Position Blood Pressure Location Right Arm Pulse Ox 99 95 Oxygen Delivery Method Room Air Room Air 11/23/24 06:00 11/23/24 07:49 11/23/24 09:30 Temperature 97.5 F L Temperature Source Oral Pulse Rate 91 Pulse Strength Normal (2+) Respiratory Rate 16 Respiratory Effort Respiratory Depth Respiratory Pattern Blood Pressure 170/97 H Blood Pressure Mean 121 Blood Pressure Source Monitor Blood Pressure Position Semi-Fowlers Blood Pressure Location Right Arm Pulse Ox 100 99 Oxygen Delivery Method Room Air Room Air 11/23/24 10:47 Temperature 97.9 F Temperature Source Oral Pulse Rate 97 Pulse Strength Respiratory Rate 16 Respiratory Effort Respiratory Depth Respiratory Pattern Blood Pressure 179/102 H Blood Pressure Mean 127 Blood Pressure Source Monitor Blood Pressure Position Sitting Blood Pressure Location Right Arm Pulse Ox 99 Oxygen Delivery Method Room Air Weight Weight: 52.3 kg Body Mass Index (BMI) 19.1 Physical Exam Neuro Neuro Narrative: Neurological examination: General: The patient appears nutritionally appropriate, well-groomed, and appears comfortable in no acute distress. Mental Status: The patient’s mental status was normal including orientation. Language was intact. Cranial nerves: No visual complaints, and extra-ocular motion was intact. Face motion symmetric. Tongue was midline with normal movement. There was no dysarthria. Motor: Normal strength in all four extremities. No pronator drift. Sensation: Intact light touch bilaterally, no extinction. Coordination: Bilateral finger to nose was normal. There was no dysmetria. Gait: deferred Lab / Micro Data 11/22/24 19:20 11/22/24 19:20 Labs: Laboratory Results - last 24 hr 11/22/24 19:16: POC Glucose 73 L 11/22/24 19:20: WBC 6.5, RBC 4.07 L, Hgb 12.8, Hct 39.1, MCV 96.1, MCH 31.4, MCHC 32.7, RDW Std Deviation 46.1 H, RDW Coeff of Cecile 13.1, Plt Count 283, MPV 9.4, Immature Gran % (Auto) 0.600, Neut % (Auto) 57.0, Lymph % (Auto) 29.4, Assumption % (Auto) 10.4 H, Eos % (Auto) 1.7, Baso % (Auto) 0.9, Absolute Neuts (auto) 3.7, Absolute Lymphs (auto) 1.92, Nucleated RBC % 0, PT 12.9, INR 1.0, APTT 23.8 L, Sodium 143, Potassium 3.6, Chloride 109 H, Carbon Dioxide 20.0 L, Anion Gap 14, BUN 30 H, Creatinine 0.93, Estim Creat Clear Calc 39.73 L, Est GFR (MDRD) Non-Af 63, BUN/Creatinine Ratio 32.7 H, Glucose 86, Hemoglobin A1c 5.8 H, Calcium 9.0, Troponin T High Sens 11 11/22/24 21:05: Troponin T Hi Sens 2 Hr 12, Vitamin B12 906, TSH 1.850 11/22/24 23:13: Troponin T Hi Sens 4Hr 14, Serum Folate 37.40 H, Ethyl Alcohol < 10.1 11/23/24 04:25: Triglycerides 67, Cholesterol 220 H, LDL Cholesterol, Calc 127, VLDL Cholesterol 13, HDL Cholesterol 79, Cholesterol/HDL Ratio 2.77 Imaging Radiology Impression Brain CT 11/22/24 19:03 IMPRESSION: 1. No intracranial hemorrhage. No mass effect or midline shift. 2. Chronic involutional and ischemic gliotic white matter changes. CT is insensitive for early evaluation of acute stroke. If there is clinical concern for acute ischemia, an MRI may be considered. Findings were verbally communicated with Dr. Sameer Vegas on 11/23/2019 at 4:30 p.m. EST. Reading [facility] Head/Neck CTA 11/22/24 19:03 IMPRESSION: Unremarkable CT angiogram of the head and neck with no evidence of occlusion or hemodynamically significant stenosis. Reading Location[facility] Brain MRI 11/23/24 21:33 IMPRESSION: No acute brain abnormalities. White matter changes which are nonspecific but most likely due to chronic small- vessel ischemia. No mass-effect or midline shift. Reading Location: [facility] NIHSS NIHSS Nursing Documentation NIHSS Nursing Documentation: NIHSS: Ischemic Stroke/TIA Start: 11/22/24 22:17 Text: For PCU Patients: NIH and Neuro Check every 4 Status: Discharge hours, PRN and with change in RN caregiver. Freq: [id number] Protocol: Activity Type Activity Date Activity User E-sign Co-sign Detail Recorded Client Recorded Date Recorded By Document 11/23/24 06:00 [facility] [id number] 11/23/24 06:12 [facility] 11/23/24 06:00 NIH Stroke Scale [NIHSS] A score of 0 is "normal" or asymptomatic . Total possible score is 42. Inpatient: RN or Physician to activate a stroke alert for onset of new stroke symptoms or with NIHSS increase >/= 3 points. Following change in neurological status, NIHSS will be performed per physician order or more frequently PRN. -1a. Level of Consciousness 0 - Alert; keenly responsive -1b. LOC Questions 0 - Answers BOTH questions correctly -1c. LOC Commands 0 - Performs BOTH tasks correctly -2. Best Gaze 0 - Normal -3. Visual 0 - No visual loss -4. Facial Palsy 0 - Normal symmetrical movements -5a. Left Arm 0 - No drift; arm holds 90 ( or 45) degrees for full 10 seconds -5b. Right Arm 0 - No drift; arm holds 90 ( or 45) degrees for full 10 seconds -6a. Left Leg 0 - No drift; leg holds 30- degree position for full 5 seconds -6b. Right Leg 0 - No drift; leg holds 30- degree position for full 5 seconds -7. Limb Ataxia 0 - Absent -8. Sensory 0 - Normal; no sensory loss -9. Best Language 0 - No aphasia; normal -10. Dysarthria 0 - Normal -11. Extinction and Inattention 0 - No abnormality -Total 0 Query Text:A score of 0 is "normal" or asymptomatic. Total possible score is 42 . ED: Notify Physician for NIHSS increase by > / = 3 points. Inpatient: RN or Physician to activate a stroke alert for NIHSS increase of > / = 3 points. Coma Scale [Assess] -Eye Opening Spontaneous -Motor Obeys Commands -Verbal Oriented [Total] -Coma Scale Total 15 NIHSS 1a. Level of Consciousness: 0 - Alert; keenly responsive 1b. LOC Questions: 0 - Answers BOTH questions correctly 1c. LOC Commands: 0 - Performs BOTH tasks correctly 2. Best Gaze: 0 - Normal 3. Visual: 0 - No visual loss 4. Facial Palsy: 0 - Normal symmetrical movements 5a. Left Arm: 0 - No drift; arm holds 90 (or 45) degrees for full 10 seconds 5b. Right Arm: 0 - No drift; arm holds 90 (or 45) degrees for full 10 seconds 6a. Left Le - No drift; leg holds 30-degree position for full 5 seconds 7. Limb Ataxia: 0 - Absent 8. Sensory: 0 - Normal; no sensory loss 9. Best Language: 0 - No aphasia; normal 10. Dysarthria: 0 - Normal 11. Extinction and Inattention: 0 - No abnormality Total: 0
--- NOTE | 2024-11-23 21:33 | MRI_ITS ---
PROCEDURE: BRAIN WITHOUT CONTRAST 11/23/2024 REASON FOR EXAM: PLEASE EVALUATE FOR CVA WITH TRANSIENT DIPLOPIA. TECHNIQUE: Procedure Code: MRIBR Modality: MR Procedure: BRAIN WITHOUT CONTRAST Multiplanar and multisequence images were obtained. COMPARISON: CT head November 22, 2024. FINDINGS: Brain: No restricted diffusion. No hemorrhage. No mass-effect or midline shift. Foci of hyperintense signal on T2 and FLAIR which are nonspecific but most likely due to chronic small vessel ischemia. Parenchymal volume loss consistent with brain atrophy. Ventricles: No ventriculomegaly. Major Intracranial Vessels: Patent. Sinuses: Retention cyst in the right maxillary sinus. No mucosal thickening. Mastoids: The mastoid cells are clear. MRI/Brain without Contrast IMPRESSION: No acute brain abnormalities. White matter changes which are nonspecific but most likely due to chronic small -vessel ischemia. No mass-effect or midline shift. Reading Location: [id number]
== END 2024-11-23 13:07 | disposition home or self-care (01) ==
LOC: ED 21:07 → PCU 21:38
PROVIDERS: Admitting Provider Internal Medicine; Emergency Provider Emergency Medicine; PCP Family Medicine; Visit Provider Family Medicine
DX: G45.9 Transient cerebral ischemic attack, unspecified (principal); Z79.01 Long term (current) use of anticoagulants; E16.2 Hypoglycemia, unspecified; I10 Essential (primary) hypertension; H53.2 Diplopia; I16.1 Hypertensive emergency; Z79.899 Other long term (current) drug therapy; Z79.82 Long term (current) use of aspirin; M19.90 Unspecified osteoarthritis, unspecified site
CPT/HCPCS: 36415; 70450; 70496; 70498; 70551; 80048; 80061; 82077; 82607; 82746; 82962; 83036; 84443; 84484; 85025; 85610; 85730; 93005; 94762; 96372; 97802; 99221; 99284; Q9967; A4216; G0378